=== PATIENT | female | born 1950 | race Caucasian/White ===

== ENCOUNTER 2021-06-23 10:23 | Emergency (ER) | payer BC ==
[~2021-06-23] VITALS: Ht 167.6 cm; Wt 106.6 kg
[~2021-06-23 10:23] MED LIST: AMLO-496 PO; ASPI1TAB20 PO; FLUT110A IN; HYDR-4069 PO; LISI40TA11 PO; OMEP20TA PO; OXYB5TAB61 PO; SIMV-13 PO; ZOLP5TAB5 PO
[2021-06-23] MEDS ORDERED: SODIUM CHLORIDE 0.9% 500 ML IV ONE (10:45)
[2021-06-23] MEDS ORDERED: MORPHINE SULFATE 4 MG/ML SYR/VIAL IV ONE (10:45)
[2021-06-23] MEDS ORDERED: ONDANSETRON HCL 4 MG/2 ML VIAL IV ONE (10:45)
[2021-06-23 11:55] LABS: Basophils # (auto) 0 10 ^3/uL (0-0.2); Basophils % (auto) 0.5 % (0.0-2.0); Eosinophils # (auto) 0.1 10 ^3/uL (0-0.8); Eosinophils % (auto) 1.2 % (0.0-7.0); Hematocrit 39.6 % (36.0-46.0); Hemoglobin 13.3 g/dL (12.2-16.2); Lymphocytes # (auto) 1.4 10 ^3/uL (0.4-5.4); Lymphocytes % (auto) 20.4 % (10.0-50.0); Mean Corpuscular Hgb Conc. 33.6 g/dL (32.0-36.0); Mean Corpuscular Volume 92.4 fL (80.0-100.0); Monocytes # (auto) 0.6 10 ^3/uL (0-1.3); Monocytes % (auto) 8.2 % (0.0-12.0); Neutrophils # (auto) 4.7 10 ^3/uL (1.6-8.6); Neutrophils % (auto) 69.7 % (37.0-80.0); Nucleated Red Blood Cells % 0.2 %; Red Blood Cells 4.29 10^6/uL (4.0-5.20); Red Cell Distribution Width 13.1 % (11.8-14.3); White Blood Cell 6.7 10^3/uL (4.4-10.8)
[2021-06-23 12:08] LABS: BUN/Creatinine Ratio 25.9; Calcium 9.3 mg/dL (8.5-10.1); Potassium 3.5 mmol/L (3.5-5.1)
[2021-06-23 12:11] LABS: Bilirubin, Total 0.8 mg/dL (0.2-1.0); Total Protein 7.8 g/dL (6.4-8.2)
[2021-06-23 12:16] LABS: INR 1.01 (0.9-1.15)
[2021-06-23 12:35] LABS: Urine Bacteria NONE SEEN /hpf (None Seen); Urine Blood Negative /uL (Negative); Urine Specific Gravity 1.003 (1.001-1.035); Urine WBC <1 /hpf (0 - 5)
[2021-06-23 14:17] VITALS: BP 128/74
== END 2021-06-23 14:17 | disposition home or self-care (01) ==
LOC: ER 10:23
DX: M79.604 Pain in right leg (principal); I10 Essential (primary) hypertension; E78.5 Hyperlipidemia, unspecified; Z90.49 Acquired absence of other specified parts of digestive tract; Z79.82 Long term (current) use of aspirin; Z79.899 Other long term (current) drug therapy; Z88.8 Allergy status to other drugs, medicaments and biological substances
CPT/HCPCS: 36415; 73700; 80053; 81001; 85025; 85610; 85652; 85730; 93971; 96361; 96374; 96375; 99284; J2270; J2405; J7040

== ENCOUNTER 2024-10-06 14:06 | Emergency (ER) | payer BC ==
[~2024-10-06] VITALS: Ht 162.6 cm; Wt 118.0 kg
[~2024-10-06 14:06] MED LIST changes: -AMLO-496 PO; +AMLO1TAB23 PO; -LISI40TA11 PO; +LISI40TA16 PO; +OXYB5TAB14 PO; -OXYB5TAB61 PO; -SIMV-13 PO; +SIMV40TA18 PO
--- NOTE | 2024-10-06 15:37 | ED.PDOC ---
Musculoskeletal HPI Comments This is a 74 year old severely morbidly obese female TOOTIE presenting to the ED with chief complaint of bilateral knee pain. Patient reports that she had been at home when she accidentally tripped and fell at ground level, injuring her bilateral knees. Patient relays that she is now experiencing pain and swelling to her bilateral knees, calling 911 for assistance. Patient denies any numbness, weakness, tingling, head injury, back pain, or any further injury at this time. Patient denies any head trauma. Patient is unable to ambulate. Vital signs were stable at arrival. Chief Complaint: Fall Injury Time Seen by MD: 15:36 Primary Care Provider: TAMIA Reviewed Notes: Nurses Notes, Spectrograph Operator Notes, Medications, Allergies Allergies: Coded Allergies: Naproxen (Unverified Adverse Reaction, Mild, N/V, 04/25/21) Home Meds Reported Medications Zolpidem Tartrate (Zolpidem Tartrate) 5 Mg Tab, 5 MG PO, TAB 04/25/21 Simvastatin (Simvastatin) 40 Mg Tab, 40 MG PO, TAB 04/25/21 Omeprazole (Gnp Omeprazole) 20 Mg Tab, 40 MG PO, TAB 04/25/21 Lisinopril (Lisinopril) 40 Mg Tab, 40 MG PO, TAB 04/25/21 Hydrocodone-Acetaminophen (Hydrocodone/Acetaminophen 7.5-325 mg) 1 Tab Tab, 1 TAB PO, TAB 04/25/21 Fluticasone Propionate (FLOVENT HFA 110Mcg INH) 110 Mcg Ih, 16 GM IN, INH 04/25/21 Amlodipine Besylate (Amlodipine Besylate) 10 Mg Tab, 10 MG PO DAILY, TAB 04/25/21 Oxybutynin Chloride (Oxybutynin Chloride) 5 Mg Tab, 5 MG PO, TAB 04/25/21 Aspirin (Aspir-81) 81 Mg Tab, 81 MG PO, TAB 04/25/21 Information Source: Patient, Emergency Med Personnel Mode of Arrival: EMS Location: Bilateral Extremity Location: Knee Timing: Hours Prehospital treatment: None Severity: Moderate Able to Move Extremity: No Bear Weight: No Pain: Moderate Mechanism: Spontaneous Circumstances: Fall Onset of Symptoms: After Trauma Symptoms: Swelling, Pain DVT Risk Factors: NONE Last Tetanus: UTD Associated signs and symptoms: Knee pain Past Medical History PAST MEDICAL HISTORY: High Lipids, HTN Surgical History: Appendectomy [employer] INSPECTOR History: No Pertinent [employer] INSPECTOR History Family History Family History: Unknown Social History Smoker: Non-Smoker Alcohol: Denies ETOH Use Drugs: Denies Drug Use Lives In: Home Constitutional: denies: chills, diaphoresis, fatigue, fever, malaise, sweats, weakness, others EENTM: denies: blurred vision, double vision, ear bleeding, ear discharge, ear drainage, ear pain, ear ringing, eye pain, eye redness, hearing loss, mouth pain, mouth swelling, nasal discharge, nose bleeding, nose congestion, nose pain, photophobia, tearing, throat pain, throat swelling, voice changes, others Respiratory: denies: cough, hemoptysis, orthopnea, SOB at rest, shortness of breath, SOB with excertion, stridor, wheezing, others Cardiovascular: denies: chest pain, dizzy spells, diaphoresis, Dyspnea on exertion, edema, irregular heart beat, left arm pain, lightheadedness, palpitations, PND, syncope, others Gastrointestinal: denies: abdomen distended, abdominal pain, blood streaked bowels, constipated, diarrhea, dysphagia, difficulty swallowing, hematemesis, melena, nausea, poor appetite, poor fluid intake, rectal bleeding, rectal pain, vomiting, others Genitourinary: denies: abnormal vagina bleeding, burning, dyspareunia, dysuria, flank pain, frequency, hematuria, incontinence, pain, , vagina discharge, urgency, others Neurological: denies: dizziness, fainting, headache, left sided numbness, left sided weakness, numbness, paresthesia, pre-existing deficit, right sided numbness, right sided weakness, seizure, speech problems, tingling, tremors, weakness, others Musculoskeletal: reports: others (Bilateral knee pain); denies: back pain, gout, joint pain, joint swelling, muscle pain, muscle stiffness, neck pain Integumetry: denies: bruises, change in color, change in hair/nails, dryness, laceration, lesions, lumps, rash, wounds, others Allergic/Immunocompromised: denies: Difficulty Healing, Frequent Infections, Hives, Itching, others Endocrine: denies: excessive hunger, excessive sweating, excessive thirst, excessive urination, flushing, intolerance to cold, intolerance to heat, unexplained weight gain, unexplained weight loss, others Psychiatric: denies: anxiety, bipolar disorder, depression, hopeless, panic disorder, schizophrenia, sleepless, suicidal, others All Other Systems: Reviewed and Negative Physical Exam General Appearance: Moderate Distress (Due to bilateral knee pain concerns.), Obese HEENT: Normal ENT Inspection, Pharynx Normal, TMs Normal Neck: Full Range of Motion, Non-Tender, Normal, Normal Inspection Respiratory: Chest Non-Tender, Lungs Clear, No Accessory Muscle Use, No Respiratory Distress, Normal Breath Sounds Cardiovascular: No Edema, No JVD, No Murmur, No Gallop, Normal Peripheral Pulses, Regular Rate/Rhythm Breast Exam: Deferred Gastrointestinal: No Organomegaly, Non Tender, No Pulsatile Mass, Normal Bowel Sounds, Soft Genitalia: Deferred Pelvic: Deferred Rectal: Deferred Extremities: Other (Patient displays ecchymosis and abrasions to bilateral knees with right greater than left. Right knee reveals significant edema, ecchymosis without erythema. Left knee reveals some mild edema and ecchymosis. Distal neurovascularly intact bilaterally. Significant reduced range of motion in bilateral knees. Patient is unable to bear weight.) Neurologic: Alert, No Motor Deficits, Normal Affect, Normal Mood, No Sensory Deficits Cerebellar Function: Normal Reflexes: Normal Skin: Dry, Normal Color, Warm Lymphatic: No Adenopathy Was a procedure done? Was a procedure done?: No Differential Diagnosis EXT Differential Diagnosis: Fracture, Sprain, Contusion, Strain X-Ray, Labs, Meds, VS Vital Signs Date Time Temp Pulse Resp B/P (MAP) Pulse Ox O2 Delivery O2 Flow Rate FiO2 10/06/24 14:11 98.3 67 16 147/85 (105) 98 98.3 Lt Knee XR: [place] [address] Ph: [phone] DIAGNOSTIC IMAGING Diagnostic Imaging Report : [id number] Signed PATIENT: ARELI STRAUSS ACCT: [id number] UNIT: [id number] : 1950 LOC: ER ROOM / BED: / AGE / SEX: 74 / F ADM STATUS: REG ER SERVICE [id number] ORDERING PHYSICIAN: AUDI CRUM PAC PROCEDURE(s): LKNE3 - L KNEE 3V XRAY REASON: Fall/trauma ORDER NUMBER(s): [id number], ACCESSION NUMBER(s): [id number] EXAM: XR Left Knee, 3 Views CLINICAL INDICATION: Fall/trauma TECHNIQUE: Three views of the left knee. COMPARISON: None FINDINGS: BONES/JOINTS: Lucency of the medial tibial plateau could be a nondisplaced fracture. No dislocation. SOFT TISSUES: Soft tissue swelling. OTHER FINDINGS: . IMPRESSION: Lucency of the medial tibial plateau could be a nondisplaced fracture. ATED BY: AUDI BAILEY MD DICTATED DATE/TIME: 10/06/241620 SIGNED BY: AUDI BAILEY MD SIGNED DATE/TIME: 10/06/241620 CC: [place] [address] Ph: [phone] DIAGNOSTIC IMAGING Diagnostic Imaging Report : [id number] Signed PATIENT: ARELI STRAUSS ACCT: [id number] UNIT: [id number] : 1950 LOC: ER ROOM / BED: / AGE / SEX: 74 / F ADM STATUS: REG ER SERVICE [id number] ORDERING PHYSICIAN: AUDI CRUM PAC PROCEDURE(s): RKN3 - R KNEE 3V XRAY REASON: Fall/trauma ORDER NUMBER(s): [id number], ACCESSION NUMBER(s): [id number] EXAM: XR Right Knee, 3 Views CLINICAL INDICATION: Fall/trauma TECHNIQUE: Three views of the right knee. COMPARISON: None FINDINGS: BONES/JOINTS: Cortical irregularity and sclerotic line of the lateral tibial plateau could be an depressed fracture. No dislocation. SOFT TISSUES: Unremarkable. OTHER FINDINGS: . IMPRESSION: Cortical irregularity and sclerotic line of the lateral tibial plateau could be an depressed fracture. ATED BY: AUDI BAILEY MD DICTATED DATE/TIME: 10/06/241623 SIGNED BY: AUDI BAILEY MD SIGNED DATE/TIME: 10/06/241623 CC: X-Ray, Labs, Meds, VS Comment All imaging studies were evaluated by me personally. Imaging studies of bilateral knee confirmed bilateral tibial plateau fractures that are nondisplaced. Patient will be admitted for pain management as well as physical and occupational therapy evaluation and safe discharge. Time of 1ST Reevaluation: 16:40 Reevaluation 1ST: Improved Consultation: PCP Patient Education/Counseling: Diagnosis, Treatment Family Education/Counseling: Diagnosis, Treatment, No Family Present Departure 1 Departure Time of Disposition: 16:40 Impression: Primary Impression: Tibial plateau fracture, left Additional Impression: Tibial plateau fracture, right Disposition: ADMITTED INPATIENT Condition: Stable Discharged With: Self Critical Care Note Critical Care Time?: No Stability Stability form required: No Heart Score Heart Score: Heart Score Response (Comments) Value History N/A 0 EKG N/A 0 Age N/A 0 Risk Factors N/A 0 Troponin N/A 0 Total 0 I personally scribed for AUDI CRUM PAC ([email or web address]) on 10/06/24 at 15:37. Electronically submitted by Chinmay Alfonso ([email or web address]). I personally scribed for AUDI CRUM PAC ([email or web address]) on 10/06/24 at 16:31. Electronically submitted by Chinmay Alfonso ([email or web address]). AUDI CRUM PAC Oct 06, 2024 15:37
--- NOTE | 2024-10-06 16:23 | DVH ---
EXAM: XR Left Knee, 3 Views CLINICAL INDICATION: Fall/trauma TECHNIQUE: Three views of the left knee. COMPARISON: None FINDINGS: BONES/JOINTS: Lucency of the medial tibial plateau could be a nondisplaced fracture. No dislocatio n. SOFT TISSUES: Soft tissue swelling. OTHER FINDINGS: . IMPRESSION: Lucency of the medial tibial plateau could be a nondisplaced fracture.
--- NOTE | 2024-10-06 16:27 | DVH ---
EXAM: XR Right Knee, 3 Views CLINICAL INDICATION: Fall/trauma TECHNIQUE: Three views of the right knee. COMPARISON: None FINDINGS: BONES/JOINTS: Cortical irregularity and sclerotic line of the lateral tibial plateau could be an de pressed fracture. No dislocation. SOFT TISSUES: Unremarkable. OTHER FINDINGS: . IMPRESSION: Cortical irregularity and sclerotic line of the lateral tibial plateau could be an depressed fractur e.
[2024-10-06] MEDS: HYDROcodone-ACET 10/325MG TAB PO ONE ×2 (17:35→20:33)
[2024-10-06] MEDS: KETOROLAC TROMETH 60MG/2ML VIAL IM ONE (17:52)
[2024-10-06 18:27] VITALS: PULSE 64; RESP 13; O2SAT 97
[2024-10-06 19:45] VITALS: PULSE 66; RESP 20; O2SAT 95
--- NOTE | 2024-10-06 20:06 | DVHINCON2 ---
SIMON VILLELA NP 10/06/24 2006: Date of service: Oct 06, 2024 Referring Physician Jaylin GUNN Reason for Consultation Medical management History of Present Illness 74-year-old female with past medical history of hypertension presents with complaints bilateral knee pain following a ground level mechanical fall. Patient is endorsing bilateral knee pain and swelling. Knee pain 02/03. At this time patient denies any additional injuries. There are no complaints of syncope, dizziness, head injury, LOC, shortness of breath, chest pain, palp itations. Allergies: Coded Allergies: Naproxen (Unverified Adverse Reaction, Mild, N/V, 04/25/21) Home Meds Active Scripts Hydrocodone-Acetaminophen (Hydrocodone Bitartrate/AC 5-325 mg) 1 Tab Tab, 1 TAB PO QID PRN for 4 Days, #16 TAB Prov:MOLLY WYLIE MD 10/07/24 Reported Medications Zolpidem Tartrate (Zolpidem Tartrate) 5 Mg Tab, 5 MG PO, TAB 04/25/21 Simvastatin (Simvastatin) 40 Mg Tab, 40 MG PO, TAB 04/25/21 Omeprazole (Gnp Omeprazole) 20 Mg Tab, 40 MG PO, TAB 04/25/21 Lisinopril (Lisinopril) 40 Mg Tab, 40 MG PO, TAB 04/25/21 Hydrocodone-Acetaminophen (Hydrocodone/Acetaminophen 7.5-325 mg) 1 Tab Tab, 1 TAB PO, TAB 04/25/21 Fluticasone Propionate (FLOVENT HFA 110Mcg INH) 110 Mcg Ih, 16 GM IN, INH 04/25/21 Amlodipine Besylate (Amlodipine Besylate) 10 Mg Tab, 10 MG PO DAILY, TAB 04/25/21 Oxybutynin Chloride (Oxybutynin Chloride) 5 Mg Tab, 5 MG PO, TAB 04/25/21 Aspirin (Aspir-81) 81 Mg Tab, 81 MG PO, TAB 04/25/21 Review of Systems 10 systems reviewed and negative except as per HPI Vital Signs Vital Signs Date Time Temp Pulse Resp B/P (MAP) Pulse Ox O2 Delivery O2 Flow Rate FiO2 10/06/24 19:45 66 20 95 Room Air* 0 21 10/06/24 19:45 98.2 134/80 (98) 98.2 Physical Exam GENERAL: Patient appearing stated age, in no acute distress. HEENT: Pupils equal and reactive to light and accommodation. Extraocular muscles intact. Mucous membranes moist. Conjunctivae pink. Anicteric sclerae. LUNGS: Bilateral air entry. No wheezes, rhonchi or rales. HEART: Regular rate and rhythm. Normal S1 and S2. ABDOMEN: BS normoactive, soft, nontender, and nondistended. No CVA tenderness. EXTREMITIES: No clubbing, cyanosis. No calf tenderness. Pedal pulses 2+. Bilateral knees placed in immobilizer. Swelling noted to bilateral knees NEUROLOGICAL: The patient is alert and oriented times 3. CN II-XII intact. No focal deficits on gross sensory or motor examination. Assessment Mechanical ground level fall Bilateral knee pain Patient was seen and evaluated ER bed 8. Patient chart was reviewed in its entirety including imaging, vital signs, and physical examination. Vital signs temperature 98.2, BP 134/80, HR 66, respirations 20 BPM, oxygen saturation 95% on room air. Imaging was interpreted per the radiologist and reviewed by myself. Impression for x-rays of bilateral knees read right possible depressed fracture of the tibial plateau, left possible nondisplaced tibial plateau fracture,. I [place] [facility] [place] Dr Tomas Ruiz, who reviewed the imaging and recommended CT's bilateral knees. CT of the left and right knee are interpreted per the radiologist and reviewed by myself. Impression reads pre- patellar soft tissue swelling with no acute fractures. Dr Ruiz also recommend assisted facility placement for physical therapy as there is no surgical intervention needed at this time. Plan/Recommendation Findings and plan of care was discussed in detail with the patient. At this time patient his requesting to be placed at [facility] assisted [facility]. Otherwise she would prefer to be discharged home in the morning. Orders were placed for social service consult, physical therapy evaluation, and pain management. Patient to be discharged to assisted facility. Otherwise if she refuses placement she can be discharged home with home health and physical therapy. O insurance case manager Yi has been consulted to assist with assisted facility placement. She has been advised of the patient's request. Will also schedule Mrs Gamino for outpatient follow up with Dr Ruiz, physician credentialing specialist in the upcoming week. Plan of care was discussed in detail with supervising physician who is in agreement with the current plan. Plan discussed with: Patient JOSE MARIA GODFREY MD 10/07/24 1411: Allergies: Coded Allergies: Naproxen (Unverified Adverse Reaction, Mild, N/V, 04/25/21) Home Meds Active Scripts Hydrocodone-Acetaminophen (Hydrocodone Bitartrate/AC 5-325 mg) 1 Tab Tab, 1 TAB PO QID PRN for 4 Days, #16 TAB Prov:MOLLY WYLIE MD 10/07/24 Reported Medications Zolpidem Tartrate (Zolpidem Tartrate) 5 Mg Tab, 5 MG PO, TAB 04/25/21 Simvastatin (Simvastatin) 40 Mg Tab, 40 MG PO, TAB 04/25/21 Omeprazole (Gnp Omeprazole) 20 Mg Tab, 40 MG PO, TAB 04/25/21 Lisinopril (Lisinopril) 40 Mg Tab, 40 MG PO, TAB 04/25/21 Hydrocodone-Acetaminophen (Hydrocodone/Acetaminophen 7.5-325 mg) 1 Tab Tab, 1 TAB PO, TAB 04/25/21 Fluticasone Propionate (FLOVENT HFA 110Mcg INH) 110 Mcg Ih, 16 GM IN, INH 04/25/21 Amlodipine Besylate (Amlodipine Besylate) 10 Mg Tab, 10 MG PO DAILY, TAB 04/25/21 Oxybutynin Chloride (Oxybutynin Chloride) 5 Mg Tab, 5 MG PO, TAB 04/25/21 Aspirin (Aspir-81) 81 Mg Tab, 81 MG PO, TAB 04/25/21 Additional Comments Additional Comments Additional Comments Patient's shortness reviewed and discussed with the nurse practitioner. I agree with nurse practitioner's evacuation, documentation, assessment and care plan as outlined. Discussed with the choice on-call case mellitus morning. Patient does not want to go to assisted facility and would rather go home with physical therapy at home.. Therefore we will arrange home health, home PT with a walker and bedside commode and safety evaluation at home. SIMON VILLELA NP Oct 06, 2024 20:06 JOSE MARIA GODFREY MD Oct 07, 2024 14:11
--- NOTE | 2024-10-06 21:07 | DVH ---
INDICATION: tibial fracture presurgical COMPARISON: CT R FEMUR WO CONTRAST on DOS: 06/23/21 TECHNIQUE: CT of the right was performed without contrast. Volume transverse images were obtained and reconstructed in multiple planes using bone and soft tissue algorithms. CONTRAST: None Radiation Dose Information: CT Dose: CTDI volume is 8.93 mGy. Dose-length product is 289.25 mGy*cm FINDINGS: The alignment is normal. There is no cortical break seen in the distal femur or proximal tibia or fib mayela. The joint spaces are normal. There is no fracture, dislocation, or focal osseous lesions. Large area of soft tissue swelling anterior patella measuring 13.2 cm long 3.3 cm in AP dimension 8 c m in transverse dimension. IMPRESSION: 1. Soft tissue swelling in the prepatellar soft tissues. 2. No CT findings to suggest bony fracture. 3. All CT scans at this medical facility are performed using dose modulation techniques as appropriat e to a performed exam including the following: Automated exposure control was utilized; adjustment of the MA and/or KV according to patient size; and use of iterative reconstruction technique.
--- NOTE | 2024-10-06 21:24 | DVH ---
EXAM: CT CT L KNEE WO CONTRAST INDICATION: tibial fracture presurgical EXAM DATE: 10/06/2024 08:17 PM COMPARISON: CT R FEMUR WO CONTRAST on DOS: 06/23/21 TECHNIQUE: Multiple axial CT images of the left knee were obtained using bone algorithm. Axial and co sheri reformatting was done. Bone and soft tissue windows were reviewed. Radiation Dose Information: CT Dose: CTDI volume is 8.09 mGy. Dose-length product is 244.32 mGy*cm Findings/Impression: There is no evidence of an acute fracture, dislocation, blastic, or lytic lesions. Specifically, no e vidence of an abnormality in the tibial plateaus. No radiopaque foreign bodies. No joint effusion or superficial soft tissue abnormalities.
[2024-10-06] MEDS: MORPHINE SULFATE INJ 2 MG/ml SYRG IM ONE (22:14)
[2024-10-06] MEDS: MORPHINE SULFATE 4 MG/ML SYR/VIAL ONE (22:19)
[2024-10-07] MEDS: HYDROcodone-ACET 7.5/325MG TAB PO PRN (03:12)
[2024-10-07 07:15] VITALS: PULSE 80; RESP 18; O2SAT 95
[2024-10-07] MEDS: HYDROcodone-ACET 5/325MG TAB PO ONE (07:52)
[2024-10-07] MEDS: ONDANSETRON HCL 4 MG/2 ML VIAL IV ONE (10:03)
[2024-10-07] MEDS: MORPHINE SULFATE 4 MG/ML SYR/VIAL IV ONE (10:04)
[2024-10-07] MEDS ORDERED: HYDR-4902 PO (12:15)
--- NOTE | 2024-10-07 12:16 | ED.PDOC ---
Departure 1 Departure Time of Disposition: 12:13 (Patient was evaluated by in the choice provider and they determined to discharge patient home with outpatient follow up) Impression: Primary Impression: Tibial plateau fracture, left Qualified Codes: S82.142A - Displaced bicondylar fracture of left tibia, initial encounter for closed fracture Additional Impression: Tibial plateau fracture, right Qualified Codes: S82.141A - Displaced bicondylar fracture of right tibia, initial encounter for closed fracture Disposition: HOME / SELF CARE / HOMELESS Condition: Stable Additional Instructions: It is important to follow up with the regular doctors. e-Prescriptions Hydrocodone-Acetaminophen (Hydrocodone Bitartrate/AC 5-325 mg) 1 Tab Tab 1 TAB PO QID PRN for 4 Days, #16 TAB Prov: MOLLY WYLIE MD 10/07/24 Discharged With: Self MOLLY WYLIE MD Oct 07, 2024 12:16
[2024-10-07 12:53] VITALS: BP 138/80; PULSE 78; RESP 16; TEMP 97.7; O2SAT 98
== END 2024-10-07 13:13 | disposition home or self-care (01) ==
LOC: EDBD 14:06 → EDUNIT# 14:06 → ER 14:13
DX: S82.142A Displaced bicondylar fracture of left tibia, initial encounter for closed fracture (principal); S82.141A Displaced bicondylar fracture of right tibia, initial encounter for closed fracture; I10 Essential (primary) hypertension; E78.5 Hyperlipidemia, unspecified; Z90.49 Acquired absence of other specified parts of digestive tract; Z88.6 Allergy status to analgesic agent; W01.0XXA Fall on same level from slipping, tripping and stumbling without subsequent striking against object, initial encounter; Y93.89 Activity, other specified; Y92.89 Other specified places as the place of occurrence of the external cause; Y99.8 Other external cause status
CPT/HCPCS: 29530; 73562; 73700; 96372; 96374; 96375; 99285; J1885; J2270; J2405